=== PATIENT | female | born 1980 | race Caucasian/White ===

== ENCOUNTER 2018-12-19 03:12 | Emergency (ER) | payer MEDICAID ==
[~2018-12-19] VITALS: Ht 167.6 cm; Wt 68.0 kg
[2018-12-19] MEDS ORDERED: [UNRECOGNIZED DRUG - REMARK] (03:18)
[2018-12-19] MEDS ORDERED: [UNRECOGNIZED DRUG - REMARK] (03:18)
--- NOTE | 2018-12-19 03:20 | NUR ---
Dr. Hall at bedside for MSE.
--- NOTE | 2018-12-19 03:37 | NUR ---
Patient provided urine sample, sent to lab.
[2018-12-19 03:49] LABS: *URINE HCG, QUAL NEGATIVE (NEGATIVE)
[2018-12-19 03:51] LABS: BASOPHILS % (AUTO) 0.4 % (0.0-2.0); EOSINOPHILS # (AUTO) 0.2 K/uL (0.0-0.7); EOSINOPHILS % (AUTO) 2.1 % (0.0-7.0); HEMATOCRIT 41.1 % (31.2-41.9); HEMOGLOBIN 13.6 g/dL (10.9-14.3); LYMPHOCYTES # (AUTO) 1.7 K/uL (20.0-40.0); MEAN CORPUSCULAR HEMOGLOBIN 31.2 uug (24.7-32.8); MEAN CORPUSCULAR HGB CONC 33 g/dL (32.3-35.6); MONOCYTES # (AUTO) 0.5 K/uL (2.0-10.0); MONOCYTES % (AUTO) 4.8 % (0.0-11.0); NEUTROPHILS # (AUTO) 8.3 K/uL (1.8-8.9); NEUTROPHILS % (AUTO) 76.7 % (38.5-71.5); PLATELET COUNT (AUTO) 161 K/uL (179-408); RED BLOOD CELL COUNT(AUTO) 4.37 MIL/uL (3.63-4.92); WHITE BLOOD COUNT (AUTO) 10.8 K/uL (3.8-11.8)
[2018-12-19 04:02] LABS: *AMPHETAMINE, URINE POSITIVE (NEGATIVE); *BARBITURATE, URINE NEGATIVE (NEGATIVE); *CANNABINOID, URINE NEGATIVE (NEGATIVE); *COCCAINE, URINE NEGATIVE (NEGATIVE); *OPIATE, URINE POSITIVE (NEGATIVE); *PHENCYCLIDINE SCREEN,URINE NEGATIVE (NEGATIVE)
[2018-12-19 04:04] LABS: ALANINE AMINOTRANSFERASE 52 U/L (14-59); ALKALINE PHOSPHATASE 75 U/L (50-136); ASPARTATE AMINOTRANSFERASE 55 U/L (15-37); BILIRUBIN,DIRECT 0.1 mg/dL (0.0-0.2); BILIRUBIN,TOTAL 0.4 mg/dL (0.2-1.0); CARBON DIOXIDE 31 mmol/L (21-32); CHLORIDE 100 mmol/L (98-107); CREATININE 0.8 mg/dL (0.6-1.3); GLUCOSE 78 mg/dL (74-106); POTASSIUM 3.3 mmol/L (3.5-5.1); TOTAL PROTEIN, SERUM 7.8 g/dL (6.4-8.2); UREA NITROGEN, BLOOD 10 mg/dL (7-18)
[2018-12-19 04:15] LABS: ETHANOL < 3 MG/DL (0-0)
--- NOTE | 2018-12-19 04:58 | NUR ---
Pt sleeping in bed, no acute signs of distress.
--- NOTE | 2018-12-19 06:50 | NUR ---
Called patient's , Frank, cellphone number, . 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
--- NOTE | 2018-12-19 07:07 | NUR ---
Report given to Mandy alonso.
--- NOTE | 2018-12-19 07:15 | NUR ---
report received from Silvana. patient still sleeping
--- NOTE | 2018-12-19 07:25 | NUR ---
ambulated to bathroom , went back to sleep.
--- NOTE | 2018-12-19 12:00 | NUR ---
Pt is awake, alert and oriented x 4. Ambulatory with steady gait. Pt ate, used hospital telephone and called her friend (who will pick her up from the ER per pt).
[2018-12-19] MEDS ORDERED: NEOMY/BACITRA/POLYMYXIN B OINT UD PACKET TP ONE (12:03)
--- NOTE | 2018-12-19 12:04 | NUR ---
Patient discharged to home in stable conditon. Written and verbal after care instructions given. Patient verbalizes understanding of instructions.
[2018-12-19 12:05] VITALS: BP 114/73
== END 2018-12-19 12:05 | disposition home or self-care (01) ==
LOC: ER 03:15
DX: F10.20 Alcohol dependence, uncomplicated (principal); F15.10 Other stimulant abuse, uncomplicated; F11.10 Opioid abuse, uncomplicated; Z59.0 Homelessness; Z79.899 Other long term (current) drug therapy; Y90.0 Blood alcohol level of less than 20 mg/100 ml
CPT/HCPCS: 36415; 80048; 80076; 80307; 83690; 84703; 85025; 99283; G0480; A4663